=== PATIENT | female | born 1955 | race Caucasian/White ===

== ENCOUNTER → 2017-02-16 | Outpatient (CLI) | payer BC ==
[~2017-02-16] MED LIST: ATOR10TA82 PO; METR1GEL3; OMEG10007 PO; RANI150T3 PO
[2017-02-19 18:52] LABS: HSV TYPE 1 DNA Not Detected (Not Detected); HSV TYPE 2 DNA Not Detected (Not Detected)
== END | disposition home or self-care (01) ==
LOC: C.LABSPEC 16:50
DX: L30.9 Dermatitis, unspecified (principal)

== ENCOUNTER → 2017-04-25 | Outpatient (CLI) | payer BC ==
[~2017-04-25] MED LIST changes: -ATOR10TA82 PO; +ATOR10TA88 PO
[2017-04-30 03:01] LABS: ANTI-CENTROMERE AB <1.0 NEG AI (<1.0 NEG); ANTI-SS-A <1.0 NEG AI (<1.0 NEG); ANTI-SS-B <1.0 NEG AI (<1.0 NEG); DNA ds CRITHIDIA NEGATIVE (NEGATIVE); HERPES SIMPLEX AB IGG-2 < 0.90 INDEX (< 0.90); MICROSOMAL AB 4 IU/ML (<9); Sm Antibody <1.0 NEG AI (<1.0 NEG)
== END | disposition home or self-care (01) ==
LOC: C.LAB1850 15:43
PROVIDERS: ATTEND Internal Medicine Infectious Disease
DX: L30.9 Dermatitis, unspecified (principal)

== ENCOUNTER → 2017-05-14 | Outpatient (CLI) | payer BC ==
--- NOTE | 2017-05-14 15:53 | MAMMOGRAPHY REPORT ---
UNILATERAL LEFT DIGITAL DIAGNOSTIC MAMMOGRAM TOMOSYNTHESIS WITH CAD AND TARGETED LEFT ULTRASOUND: 05/04 CLINICAL HISTORY: 61-year-old woman with a personal history of left breast cancer status post breast conservation treatment presents approximately one week after she noted a new lump in the upper outer quadrant of the left breast between her skin surgical scar and nipple. No skin erythema or nipple di scharge. TECHNIQUE: Left breast tomosynthesis in addition to standard 2D mammography was performed. Current st udy was also evaluated with a Computer Aided Detection (CAD) system. COMPARISON: Comparison is made to exams dated: 07/25/2016 mammogram, 07/23/2015 mammogram, 03/13/2014 mammogram, 11/08/2012 mammogram, 09/26/2011 mammogram, and 08/01/2010 mammogram - [facility]. BREAST COMPOSITION: There are scattered areas of fibroglandular density in the left breast. FINDINGS: There are stable surgical clips and benign rim calcifications in the upper outer posterior left breast, at the site of prior lumpectomy. A surgical clip also projects over the superior left b reast and pectoralis muscle on the MLO view. A triangle palpable marker overlies the upper outer ant erior left breast, near an area of skin irregularity, denoting the palpable lump pointed out by the p atient. There is no evidence of a new mammographic mass, asymmetry or suspicious calcifications near the area of concern or elsewhere throughout the visualized left breast. Further evaluation with ult rasound was performed. Targeted ultrasound was performed in the area of palpable lump pointed out by the patient (2:00 left breast, 1 cm from the nipple). On palpation there is a firm 1 cm region between the skin surgical sc ar and the nipple in the 2:00 left breast. On ultrasound, starting at the level of the skin surgical scar, there is expected hypoechoic scar tissue. Extending closer to the nipple, a taller than wide hypoechoic shadowing area persists which may simply represent continuation of the surgical scar. How ever, given the palpable change identified by the patient, this area is indeterminate, warranting def initive characterization with an ultrasound-guided core needle biopsy. This area is best appreciated on the last ultrasound image in the series. IMPRESSION: ACR BI-RADS CATEGORY 4: SUSPICIOUS, TARGETED ULTRASOUND ACR BI-RADS CATEGORY 4: SUSPICIO US 1. Ultrasound guided core biopsy is recommended for a palpable lesion in the 2:00 left breast, 1 cm from the nipple that is hypoechoic, irregular and taller than wide, measuring approximately 3 x 5 mm. Although this may simply represent scar tissue from prior surgery, tissue sampling is recommended g iven that it is newly palpable by the patient. These results and recommendations were discussed with the patient and her at the time of the exam. Approximately 10% of breast cancers are not detected with mammography. A negative mammographic report should not delay biopsy if a clinically suggestive mass is present. Charisma Mason M.D. ay/:05/14/2017 13:32:21 Echocardiograph Technician: Kallie GALVAN(R)(M), [facility] letter sent: Abnormal 4/5 BI-RADS Code: ACR BI-RADS Category 4: Suspicious Ultrasound BI-RADS: ACR BI-RADS Category 4: Suspici ous
== END | disposition home or self-care (01) ==
LOC: C.MAMM 10:02
PROVIDERS: ATTEND Obstetrics & Gynecology
DX: N63 Unspecified lump in breast (principal); Z85.3 Personal history of malignant neoplasm of breast; R92.0 Mammographic microcalcification found on diagnostic imaging of breast

== ENCOUNTER → 2017-05-21 | Outpatient (CLI) | payer BC ==
--- NOTE | 2017-05-21 11:53 | Discharge Instructions ---
Discharge Instructions Procedure Procedure Date: May 21, 2017. Reason for visit: Left Palpable Mass. Discharge Discharge Date: May 21, 2017. Discharge Diagnosis: post left breast ultrasound guided core biopsy Instructions Activity Recommendations: Additional Limitations (see below) Return to School/Work: no limitations Recommended Home Diet: No Limitations Provider Instructions: ACTIVITY RECOMMENDATIONS: * No lifting, pushing, pulling or exercising the affected side for three days. RETURN TO SCHOOL/WORK: * You may return to work/school after the procedure, but do not perform any strenuous activities for 24 to 48 hours. MEDICATIONS: * Tylenol (two 325 mg) every four to six hours if needed for mild pain (if not allergic to Tylenol). DIET: * Resume previous diet. SPECIAL CARE INSTRUCTIONS: * Keep biopsy site dry for 24 hours. May shower after 24 hours, but do not soak (bathe) incision. * May remove Tegaderm (plastic patch) tomorrow AFTER showering. * Leave the steri-strips on for one week. Allow the steri-strips to fall off by themselves. If not off after one week, you may remove them. You may place a Bandaid crosswise over the strips, if desired. * Apply ice 10 minutes on and 10 minutes off as needed. * Wear a bra at bedtime to sleep more comfortably for 2-3 days. * Your referring physician should have the results after approximately 5 to 7 business days. * Call for unusual bleeding, fever, drainage, etc or if you have any questions call [phone] during normal business hours or after hours call Dr Mason, . FOLLOW UP VISIT: Follow-up with Referring Physician as scheduled. Allergies Coded Allergies: Furosemide (Verified Allergy, Unknown, ., 06/04/15) PATIENT NOT AWARE OF THIS BEING ALLERGY. Penicillins (Verified Allergy, Unknown, 06/04/15) Latex (Unverified Adverse Reaction, Intermediate, RASH, 07/23/13) Belia Frankel Recommendations: Call your doctor if: * Temperature above 101 degrees * Pain not relieved by pain medicine ordered * There is increased drainage or redness from any incision * You have any unanswered questions or concerns. Your Doctors Instructions noted above were prepared by provider Charisma Mason. Patient Signature Section: Patient Instructions Signature Page Trcai Burkett Patient (or Guardian) Signature/Date: I have read and understand the instructions given to me by my caregivers. Caregiver/RN/Doctor Signature/Date: The above-named patient and/or guardian has received patient instructions on this date. + Original Patient Signature Page (only) stays with chart. Please make copy for patient.
--- NOTE | 2017-05-21 13:10 | MAMMOGRAPHY REPORT ---
UNILATERAL LEFT DIGITAL DIAGNOSTIC MAMMOGRAM TOMOSYNTHESIS: 05/21/2017 CLINICAL HISTORY: Status post ultrasound-guided core biopsy of a palpable area corresponding with a h ypoechoic shadowing mass in the 2:00 left breast which could represent scar tissue versus disease rec urrence. Please refer to the report from left breast ultrasound guided core biopsy performed at the same time for full detail. IMPRESSION: POST PROCEDURE IMAGING FOR MARKER PLACEMENT Please refer to the report from left breast ultrasound guided core biopsy performed at the same time for full detail. Approximately 10% of breast cancers are not detected with mammography. A negative mammographic report should not delay biopsy if a clinically suggestive mass is present. Charisma Mason M.D. ay/:05/21/2017 11:54:39 Field Support Technician: Kristin ROQUE)(M), [facility] BI-RADS Code: Post Procedure Imaging For Marker Placement
--- NOTE | 2017-05-21 13:10 | MAMMOGRAPHY REPORT ---
ULTRASOUND GUIDED BIOPSY LEFT BREAST: 05/21/2017 CLINICAL HISTORY: Palpable lump at the 2:00 left breast between the skin surgical scar and nipple. P ossible scar tissue versus hypoechoic mass seen on ultrasound in the area of palpable concern. Patie nt presents for ultrasound-guided core needle biopsy. COMPARISON: Comparison is made to exams dated: 05/14/2017 ultrasound, 05/14/2017 mammogram, 07/25/2016 mammogram, 07/23/2015 mammogram, 03/13/2014 mammogram, and 11/08/2012 mammogram - [facility]. PATIENT CONSENT: The procedure, risks and benefits were discussed with the patient and informed conse nt was obtained both verbally and in writing. Specific risks to this procedure include: bleeding, in fection, puncture of adjacent structure, nontarget biopsy, sampling error, pain, metal allergy and me dication reaction. PROCEDURE DESCRIPTION: A time out was performed and the left breast was agreed as the site of biopsy. The skin was prepped and draped in the usual sterile fashion. The taller than wide hypoechoic solid mass versus hypoechoic area of scar tissue in the left 2:00 breast was chosen as the target for biops y. Subcutaneous and intraparenchymal 1% buffered lidocaine, with and without epinephrine, was adminis tered as local anesthesia. A skin incision was made. Through the incision, 4 samples were taken with a 14 gauge Achieve biopsy device. A ribbon shaped metallic marker was placed at the biopsy site. Hem ostasis was achieved after manual compression. The patient tolerated the procedure well and there was no immediate complication. The samples were sent to the pathology department in an appropriately la beled container. Post procedure left CC and ML tomosynthesis images were obtained. A new ribbon-shaped metallic biops y marker is seen anterior and inferior to the surgical clips denoting the lumpectomy bed in the left upper outer quadrant. No significant postbiopsy hematoma. IMPRESSION: ULTRASOUND GUIDED BIOPSY Status post ultrasound-guided core biopsy of a hypoechoic mass versus scar tissue which is palpable t o the patient in the 2:00 anterior left breast, with biopsy marker placed at the site. The patient will receive notification of the biopsy results from her referring physician. Charisma Mason M.D. ay/:05/21/2017 12:25:26 Personal Property Appraiser: Kristin GALVAN(R)(M), [facility]
== END | disposition home or self-care (01) ==
LOC: C.MAMM 11:04
PROVIDERS: ATTEND Obstetrics & Gynecology
DX: N63 Unspecified lump in breast (principal); N60.12 Diffuse cystic mastopathy of left breast

== ENCOUNTER → 2017-07-30 | Outpatient (CLI) | payer BC ==
[~2017-07-30] MED LIST changes: +ATOR10TA82 PO; -ATOR10TA88 PO
--- NOTE | 2017-07-31 15:09 | MAMMOGRAPHY REPORT ---
BILATERAL DIGITAL SCREENING MAMMOGRAM TOMOSYNTHESIS WITH CAD: 07/30/2017 CLINICAL HISTORY: Asymptomatic. Personal history of breast cancer. TECHNIQUE: Breast tomosynthesis in addition to standard 2D mammography was performed. Current study was also evaluated with a Computer Aided Detection (CAD) system. COMPARISON: Comparison is made to exams dated: 05/21/2017 mammogram, 05/21/2017 ultrasound biopsy, 05/04 ultrasound, 05/14/2017 mammogram, 07/25/2016 mammogram, and 07/23/2015 mammogram - [facility]. BREAST COMPOSITION: There are scattered areas of fibroglandular density in both breasts. FINDINGS: There is expected architectural distortion, skin irregularity and surgical clips in the upp er outer quadrant of the left breast, at the site of prior lumpectomy. There is a new stable ribbon- shaped biopsy marker clip near the surgical site also in the left upper outer quadrant. A stable clarissa -shaped biopsy marker clip in the medial right breast. Stable benign-appearing calcifications bilate rally. No new suspicious mass, architectural distortion or cluster of microcalcifications is seen. IMPRESSION: ACR BI-RADS CATEGORY 1: NEGATIVE There is no mammographic evidence of malignancy. A 1 year screening mammogram is recommended. The pa tient will receive written notification of the results. Approximately 10% of breast cancers are not detected with mammography. A negative mammographic report should not delay biopsy if a clinically suggestive mass is present. Charisma Mason M.D. ay/:07/30/2017 16:38:41 C Java Developer: Diana GALVANR, M, [facility] letter sent: Normal 1/2 BI-RADS Code: ACR BI-RADS Category 1: Negative
== END | disposition home or self-care (01) ==
LOC: C.MAMM 08:44
PROVIDERS: ATTEND Obstetrics & Gynecology
DX: Z12.31 Encounter for screening mammogram for malignant neoplasm of breast (principal); Z85.3 Personal history of malignant neoplasm of breast